=== PATIENT | male | born 1960 | race Caucasian/White ===

== ENCOUNTER 2020-05-29 20:51 | Emergency (ER) | payer MEDICAID ==
[~2020-05-29] VITALS: Ht 175.3 cm; Wt 76.3 kg
[~2020-05-29 20:51] MED LIST: SULF1TAB3
[2020-05-29 21:47] LABS: COVID AG,FIA SOURCE NASOPHARYNGEAL
[2020-05-29 22:01] LABS: BASOPHILS % (AUTO) 0.6 % (0.0-2.0); EOSINOPHILS % (AUTO) 1.7 % (1.0-6.0); HEMATOCRIT 42.7 % (41-53); HEMOGLOBIN 14.9 g/dL (13.5-17.5); LYMPHOCYTES # (AUTO) 1.3 K/uL (1.0-4.8); MEAN CORPUSCULAR HEMOGLOBIN 33.2 pg (26.0-34.0); MEAN CORPUSCULAR HGB CONC 34.8 G/dL (31.0-37.0); MEAN CORPUSCULAR VOLUME 95 fL (80-100); MONOCYTES % (AUTO) 11.4 % (2.0-9.0); NEUTROPHILS % (AUTO) 71.3 % (40.0-70.0); PLATELET COUNT (AUTO) 251 K/uL (150-450); RED BLOOD CELL COUNT(AUTO) 4.49 MIL/uL (4.50-5.90); RED CELL DISTRIBUTION WIDTH 13.5 % (11.5-14.5)
[2020-05-29 22:08] LABS: ANION GAP 8 mmol/L (8-16); CALCIUM, TOTAL 8.9 mg/dL (8.8-10.5); CARBON DIOXIDE 30 mmol/L (22-29); CHLORIDE 101 mmol/L (98-107); GLOMERULAR FILTR. RATE CALC > 60 mL/min (>60); GLUCOSE,RANDOM 102 mg/dL (70-110); POTASSIUM 3.9 mmol/L (3.5-5.1); SODIUM SERUM 139 mmol/L (136-145); UREA NITROGEN, BLOOD 27 mg/dL (7-18)
[2020-05-29 22:14] LABS: ALANINE AMINOTRANSFERASE 61 U/L (12-78); ALBUMIN 3.1 g/dL (3.4-5.0); ALKALINE PHOSPHATASE 128 U/L (46-116); ASPARTATE AMINOTRANSFERASE 45 U/L (15-37); BILIRUBIN,TOTAL 0.7 mg/dL (0.1-1.0); LIPASE 186 U/L (73-393); TOTAL PROTEIN, SERUM 7.1 g/dL (6.4-8.2)
[2020-05-29 22:16] LABS: INFLUENZA TYPE A NEGATIVE FOR TYPE A (NEGATIVE); INFLUENZA TYPE B NEGATIVE FOR TYPE B (NEGATIVE)
[2020-05-29 22:20] LABS: LACTIC ACID 1.5 mmol/L (0.4-2.0)
[2020-05-29 22:23] LABS: B-TYPE NATRIURETIC PEPTIDE < 5 pg/mL (0-100)
[2020-05-29] MEDS ORDERED: DOXYCYCLINE HYCLATE 100 MG TABLET PO ONE (22:45)
[2020-05-29] MEDS ORDERED: IPRATROPIUM BROMIDE 0.5 MG/2.5 ML NEB SOLUTION NEB ONE (22:45)
[2020-05-29] MEDS ORDERED: ALBUTEROL SULFATE 5 MG/ML 20 ML NEB SOLN [BULK] NEB ONE (22:45)
[2020-05-30] VITALS: BP 103/64
== END 2020-05-30 00:15 | disposition home or self-care (01) ==
LOC: EMS 20:55
DX: J18.9 Pneumonia, unspecified organism (principal); J44.9 Chronic obstructive pulmonary disease, unspecified; F17.210 Nicotine dependence, cigarettes, uncomplicated; Z20.822 Contact with and (suspected) exposure to COVID-19
CPT/HCPCS: 71045; 80053; 83605; 83690; 83880; 84484; 85025; 87040; 87426; 87804; 93005; 94640; 99285; G0480

== ENCOUNTER 2022-01-21 01:00 | Emergency (ER) | payer MEDICAID ==
[~2022-01-21] VITALS: Ht 172.7 cm; Wt 77.0 kg
[2022-01-21 01:39] VITALS: BP 116/53
[2022-01-21] MEDS ORDERED: SULF-261 PO (02:26)
== END 2022-01-21 02:30 | disposition home or self-care (01) ==
LOC: EMS 01:00
DX: L03.116 Cellulitis of left lower limb (principal); J44.9 Chronic obstructive pulmonary disease, unspecified; E11.9 Type 2 diabetes mellitus without complications; F17.210 Nicotine dependence, cigarettes, uncomplicated
CPT/HCPCS: 99283